=== PATIENT | female | born 1995 | race Two or more races ===

== ENCOUNTER 2021-12-03 17:59 | Emergency (ER) | payer MEDICAID, OTHER ==
[~2021-12-03] VITALS: Ht 157.5 cm; Wt 78.5 kg
[2021-12-03 18:48] LABS: Basophils # (auto) 0.1 10 ^3/uL (0-0.2); Eosinophils # (auto) 0.2 10 ^3/uL (0-0.8); Eosinophils % (auto) 1.7 % (0.0-7.0); Hematocrit 39.1 % (36.0-46.0); Hemoglobin 13.1 g/dL (12.2-16.2); Lymphocytes # (auto) 2.4 10 ^3/uL (0.4-5.4); Lymphocytes % (auto) 23.7 % (10.0-50.0); Mean Corpuscular Hemoglobin 27.1 pg (28.0-32.0); Mean Corpuscular Hgb Conc. 33.4 g/dL (32.0-36.0); Mean Corpuscular Volume 81.1 fL (80.0-100.0); Monocytes # (auto) 0.6 10 ^3/uL (0-1.3); Monocytes % (auto) 5.9 % (0.0-12.0); Neutrophils # (auto) 6.8 10 ^3/uL (1.6-8.6); Neutrophils % (auto) 67.7 % (37.0-80.0); Nucleated Red Blood Cells % 0.3 %; Red Blood Cells 4.82 10^6/uL (4.0-5.20); Red Cell Distribution Width 13.8 % (11.8-14.3)
[2021-12-03 19:06] LABS: Albumin 3.6 g/dL (3.4-5.0); Anion Gap 4 (5-15); BUN/Creatinine Ratio 13.3; Blood Urea Nitrogen 8 mg/dL (7-18); Carbon Dioxide 29 mmol/L (21-32); Chloride 106 mmol/L (98-107); GFR African American 158 mL/min; GFR Non-African American 131 mL/min; Glucose 102 mg/dL (74-106); Potassium 3.6 mmol/L (3.5-5.1); Sodium 139 mmol/L (136-145)
[2021-12-03 19:14] LABS: Alanine Aminotransferase 66 U/L (13-56); Alkaline Phosphatase 213 U/L (45-117); Aspartate Aminotransferase 41 U/L (15-37); Bilirubin, Total 0.2 mg/dL (0.2-1.0); Total Protein 7.7 g/dL (6.4-8.2)
[2021-12-04] MEDS ORDERED: ALUM & MAG HYDROX-SIMETH LIQ(MAALOX) 30 ML PO ONE (05:45)
[2021-12-04] MEDS ORDERED: ALBU108A5 IN (05:57)
[2021-12-04] MEDS ORDERED: FAMO20TA10 PO (05:58)
[2021-12-04 06:15] VITALS: BP 108/48
== END 2021-12-04 06:23 | disposition home or self-care (01) ==
LOC: ER 17:59
DX: R07.9 Chest pain, unspecified (principal); R10.13 Epigastric pain
CPT/HCPCS: 36415; 76705; 80053; 84484; 85025; 93005